=== PATIENT | female | born 1995 | race Caucasian/White ===

== ENCOUNTER 2018-07-13 17:41 | Emergency (ER) | payer MEDICAID ==
[2018-07-13 17:45] VITALS: BP_SYST 129
[2018-07-13] MEDS ORDERED: ACETAMINOPHEN 500 MG TABLET PO ONE (18:15)
[2018-07-13] MEDS ORDERED: ONDANSETRON 4 MG ODT TAB PO ONE (18:15)
[2018-07-13] MEDS ORDERED: KETOROLAC TROMETHAMINE 60 MG/2 ML VIAL IM ONE (18:30)
[2018-07-13 20:22] VITALS: BP_SYST 122
== END 2018-07-13 20:22 | disposition home or self-care (01) ==
LOC: SED 17:41
DX: S16.1XXA Strain of muscle, fascia and tendon at neck level, initial encounter (principal); S80.12XA Contusion of left lower leg, initial encounter; R03.0 Elevated blood-pressure reading, without diagnosis of hypertension; Z88.0 Allergy status to penicillin; V43.52XA Car driver injured in collision with other type car in traffic accident, initial encounter; Y93.89 Activity, other specified; Y92.89 Other specified places as the place of occurrence of the external cause; Y99.8 Other external cause status
CPT/HCPCS: 36415; 72040; 73560; 81025; 84702; 99285; J1885; Q0162; 99284